=== PATIENT | female | born 1950 | race Caucasian/White ===

== ENCOUNTER → 2016-07-14 | Outpatient (CLI) | payer MEDICARE, OTHER ==
[~2016-07-14] MED LIST: ALLEGRA-D 12 HO1 TER PO; CELECOXIB; FLONASE NASAL S16 GM NS; GLUCOSAMINE/CHONDROI; MVI
== END ==
LOC: MC.RAD 13:00
DX: Z12.31 Encounter for screening mammogram for malignant neoplasm of breast (principal)

== ENCOUNTER → 2017-09-25 | Outpatient (CLI) | payer MEDICARE, OTHER | LOC: MC.RAD 10:55 | DX: Z12.31 Encounter for screening mammogram for malignant neoplasm of breast (principal) ==

== ENCOUNTER 2018-10-03 15:58 | Observation (INO) | payer MEDICARE, OTHER ==
[~2018-10-03] VITALS: Ht 154.9 cm; Wt 65.0 kg
[~2018-10-03 15:58] MED LIST changes: +CALCIUM CITRATE1 TA7 PO; +FLAXSEED OIL1000 MG PO; +LUTEIN20 M1 PO; +MAGNESIUM CITR100 MG PO; +MASON NATURAL1200 MG PO; +PRILOTC PO; +SYNTHROID0.05 MG/TA PO; +SYNTHROID0.075 MG/T PO; +TIMOPTIC 0.5%-15 OU; +ZYRTEC10MGSGL PO
[2018-10-03 16:18] LABS: BASO # 0.1 (0.0-0.2); BASO % 1.1 % (0.0-2.0); EOS # 0.2 (0.0-0.7); EOS % 2.8 % (0-4.0); GRAN # 3.6 (1.4-6.5); HEMATOCRIT 44.4 % (37.0-47.0); HEMOGLOBIN 15.3 g/dl (12.5-16.0); LYMPH # 3.1 (1.2-3.4); LYMPH % 40.6 % (20.0-51.0); MEAN CELL VOLUME 91 fl (80.0-100.0); MEAN CORPUSCULAR HEMOGLOBIN 32 pg (27.0-31.0); MEAN CORPUSCULAR HGB CONC 35 g/dl (33.0-37.0); MEAN PLATELET VOLUME 9.8 fl (7.4-10.4); MONO # 0.6 (0.1-0.6); MONO % 7.4 % (1.7-9.3); PLATELET COUNT 312 K/mm3 (130-400); RED BLOOD COUNT 4.86 M/mm3 (4.10-5.30); REDCELL DISTRIBUTION WIDTH-CV 12.2 % (11.5-14.5)
[2018-10-03 16:22] LABS: INR 0.9 (0.8-3.0)
[2018-10-03 16:26] LABS: ALANINE AMINOTRANSFERASE 24 U/L (9-52); ALBUMIN 4.5 gm/dL (3.5-5.0); ALKALINE PHOSPHATASE 99 U/L (50-136); ANION GAP 12 mmol/L (7-16); AST,SGOT 32 U/L (15-37); BLOOD UREA NITROGEN 18 mg/dL (7-17); CALCIUM 9.9 mg/dL (8.4-10.2); CARBON DIOXIDE 26 mmol/L (22-30); CHLORIDE 106 mmol/L (98-107); CREATINE KINASE 78 U/L (30-135); CREATININE, serum 0.69 (0.52-1.25); GLUCOSE 136 mg/dL (74-106); POTASSIUM 3.6 mmol/L (3.4-5.0); SODIUM 143 mmol/L (137-145); TOTAL PROTEIN 7.9 gm/dL (6.4-8.2)
[2018-10-03 16:44] LABS: TROPONIN-I < 0.012 ng/mL (0.000-0.035)
[2018-10-03] MEDS ORDERED: CELEBREX 200MG200 MG PO (18:07)
[2018-10-03 18:22] VITALS: BP 134/69; PULSE 75; TEMP 98
--- NOTE | 2018-10-03 18:54 | NUR ---
Pt arrived to floor at approximately 1815. Oriented to room, pt ordered supper. Resting in chair at side of bed awaiting supper. Denies needs, telemetry in place, will give bedside shift report to nightshift nurse who will resume care.
[2018-10-03 19:22] VITALS: BP 122/59; PULSE 66; TEMP 98.2
--- NOTE | 2018-10-03 20:00 | NUR ---
Admit assessment complete. Pt resting in bedside recliner, awake, a&o, cooperative c cares. Pt denies pain, SOB or any other c/o, states "I feel just fine". INT patent. Tele in place. Pt denies any needs. Call light in reach, will monitor.
[2018-10-03 23:25] VITALS: BP 113/65; PULSE 62; TEMP 98.1
[2018-10-04 03:59] VITALS: BP 105/55; PULSE 53; TEMP 98.1
--- NOTE | 2018-10-04 07:15 | NUR ---
Report received from LORETTA Sawyer. PT in bed resting with no needs, will continue to monitor.
[2018-10-04 07:28] LABS: MAGNESIUM 2.1 mg/dL (1.6-2.3)
[2018-10-04 07:41] LABS: TROPONIN-I < 0.012 ng/mL (0.000-0.035)
[2018-10-04 09:18] VITALS: BP 120/75; PULSE 72; TEMP 97.8
--- NOTE | 2018-10-04 09:21 | NUR ---
Assessment charted. PT doing well, no complaints overnight, no symptoms of afib overnight. Denies pain. INT to RA/C. Will continue to monitor.
--- NOTE | 2018-10-04 09:43 | NUR ---
Initial visit; Patient using telephone and thanked Sponge Packer who wished her well and will return another time for visit.
--- NOTE | 2018-10-04 12:32 | NUR ---
First visit from the cryptological technician. prayed with patient. No other needs right now.
[2018-10-04 12:53] VITALS: BP 136/59; PULSE 54; TEMP 97.5
[2018-10-04 13:01] LABS: CHOLESTEROL RISK RATIO 3.5
--- NOTE | 2018-10-04 15:05 | NUR ---
SW met with patient and about discharge planning. Patient lives independently at home with her and plans to return there upon discharge. Patient's PCP is Dr Felix and she obtains prescriptions from [facility]. Patient does not use any DME or home health services. Patient does not have a DPOA and is not interested in completing one at this time. SW does not anticipate any discharge needs.
[2018-10-04] MEDS ORDERED: CARDIZEM CD 12120 MG PO (16:46)
[2018-10-04] MEDS ORDERED: ELIQUIS 5MG PO (16:46)
[2018-10-04] MEDS ORDERED: LIPITOR20 MG PO (16:46)
--- NOTE | 2018-10-04 17:32 | NUR ---
Discharge teaching ocmpleted at this time. INT dc'd, tip intact. Pt received discharge packet, answered all questions, reviewed f/u appointments, new medications. Pt left with all belongings, escorted out by myself. to drive home, criteria met.
== END 2018-10-04 17:42 | disposition home or self-care (01) ==
LOC: COL.ER 15:58 → MEDICAL 17:22
PROVIDERS: Emergency Medicine; Physician Assistant; ADMIT Internal Medicine
DX: I48.92 Unspecified atrial flutter (principal); I48.91 Unspecified atrial fibrillation; E78.5 Hyperlipidemia, unspecified; K21.9 Gastro-esophageal reflux disease without esophagitis; I08.1 Rheumatic disorders of both mitral and tricuspid valves; Z90.710 Acquired absence of both cervix and uterus; M19.90 Unspecified osteoarthritis, unspecified site; E04.9 Nontoxic goiter, unspecified; Z79.899 Other long term (current) drug therapy
CPT/HCPCS: G0378; J1650

== ENCOUNTER → 2019-01-03 | Outpatient (CLI) | payer MEDICARE, OTHER ==
[~2019-01-03] MED LIST changes: +CARDIZEM CD 12120 MG PO; +CELEBREX 200MG200 MG PO; +ELIQUIS 5MG PO; +LIPITOR20 MG PO
== END ==
LOC: MC.RAD 10:00
DX: Z12.31 Encounter for screening mammogram for malignant neoplasm of breast (principal)

== ENCOUNTER → 2021-05-14 | Outpatient (CLI) | payer MEDICARE, OTHER | LOC: MC.RAD 03-28 08:45 | DX: Z12.31 Encounter for screening mammogram for malignant neoplasm of breast (principal) ==

== ENCOUNTER → 2021-10-24 | Outpatient (CLI) | payer MEDICARE, OTHER | LOC: COL.RAD 12:44 | DX: K44.9 Diaphragmatic hernia without obstruction or gangrene (principal); K21.9 Gastro-esophageal reflux disease without esophagitis | CPT/HCPCS: Q9967 ==

== ENCOUNTER → 2022-07-17 | Outpatient (CLI) | payer MEDICARE, OTHER | LOC: MC.RAD 11:00 | DX: Z12.31 Encounter for screening mammogram for malignant neoplasm of breast (principal) ==